=== PATIENT | female | born 1960 | race Caucasian/White ===

== ENCOUNTER → 2016-03-04 | Outpatient (CLI) | payer OTHER ==
[~2016-03-04] MED LIST: ESTR1TAB PO; LOSA50TA PO; MEDR2.5T19 PO; METO50CR PO; SIMV20 PO
[2016-03-04 08:07] LABS: BASOPHIL % 0.7 % (0.0-2.0); EOSINOPHIL # 0.1 TH/MM3 (0-0.4); EOSINOPHIL % 2.3 % (0.0-4.0); HEMATOCRIT 31.4 % (35.0-46.0); HEMO FLAGS DIFF FINAL; LYMPH % 39.4 % (9.0-44.0); LYMPHOCYTE # 1.6 TH/MM3 (1.0-4.8); MEAN CELL VOLUME 95.3 FL (80.0-100.0); MEAN CORPUSCULAR HEMOGLOBIN 31.8 PG (27.0-34.0); MEAN CORPUSCULAR HGB CONC 33.4 % (32.0-36.0); MONO % 7.4 % (0.0-8.0); NEUT % 50.2 % (16.0-70.0); PLATELET COUNT 206 TH/MM3 (150-450); RED CELL DISTRIBUTION WIDTH 14.1 % (11.6-17.2)
[2016-03-04 08:48] LABS: ANION GAP 7 MEQ/L (5-15); AST (GOT) 14 U/L (15-37); BICARBONATE 26.2 MEQ/L (21.0-32.0); BLOOD UREA NITROGEN 35 MG/DL (7-18); CHLORIDE 106 MEQ/L (98-107); GLOMERULAR FILTRATION RATE 28 ML/MIN (>89); GLUCOSE,FASTING 88 MG/DL (74-99); POTASSIUM 4.2 MEQ/L (3.5-5.1); SODIUM (NA) 139 MEQ/L (136-145)
[2016-03-04 08:52] LABS: ALKALINE PHOSPHATASE 66 U/L (45-117); ALT (GPT) 18 U/L (10-53); HDL CHOLESTEROL 116.1 MG/DL (40.0-60.0); LDL CHOLESTEROL 66 MG/DL (0-99); TOTAL BILIRUBIN ADULT 0.4 MG/DL (0.2-1.0)
== END ==
LOC: CLAB 07:40
PROVIDERS: ATTEND Family Medicine
DX: N18.3 Chronic kidney disease, stage 3 (moderate) (principal); I12.9 Hypertensive chronic kidney disease with stage 1 through stage 4 chronic kidney disease, or unspecified chronic kidney disease; D63.8 Anemia in other chronic diseases classified elsewhere; N95.9 Unspecified menopausal and perimenopausal disorder; E55.9 Vitamin D deficiency, unspecified; E78.2 Mixed hyperlipidemia; N08 Glomerular disorders in diseases classified elsewhere
CPT/HCPCS: 36415; 80053; 80061; 82306; 85025

== ENCOUNTER → 2016-05-09 | Outpatient (CLI) | payer OTHER ==
[2016-05-09 08:16] LABS: HEMATOCRIT 29.4 % (35.0-46.0); MEAN CELL VOLUME 95.5 FL (80.0-100.0); MEAN CORPUSCULAR HEMOGLOBIN 32.1 PG (27.0-34.0); MEAN CORPUSCULAR HGB CONC 33.6 % (32.0-36.0); PLATELET COUNT 202 TH/MM3 (150-450); RED BLOOD COUNT 3.07 MIL/MM3 (4.00-5.30); RED CELL DISTRIBUTION WIDTH 14.1 % (11.6-17.2); REVIEW FLAG FINAL; WHITE BLOOD COUNT 4.6 TH/MM3 (4.0-11.0)
[2016-05-09 08:22] LABS: BICARBONATE 26.4 MEQ/L (21.0-32.0); POTASSIUM 4.4 MEQ/L (3.5-5.1)
[2016-05-09 08:22] LABS: BLOOD, URINE MOD (NEG); GLUCOSE,URINE NEG (NEG); KETONE, URINE NEG (NEG); MUCUS URINE FEW /lpf (OCC); NITRITE,URINE NEG (NEG); PH, URINE 5.5 (5.0-8.5); SQUAMOUS EPITHELIAL CELL URINE 2 /hpf (0-5); URINE COLOR YELLOW (YELLW/STRAW)
[2016-05-09 08:23] LABS: COMMENT (UR) CULT NOT INDICATED; CULTURE IF INDICATED CULT NOT INDICATED
== END ==
LOC: CLAB 07:41
PROVIDERS: ATTEND Internal Medicine Nephrology
DX: N25.81 Secondary hyperparathyroidism of renal origin (principal); N18.4 Chronic kidney disease, stage 4 (severe)
CPT/HCPCS: 36415; 80069; 81001; 82570; 83970; 84156; 85027

== ENCOUNTER → 2016-09-27 | Outpatient (CLI) | payer OTHER ==
[2016-09-27 10:35] LABS: BLOOD, URINE MOD (NEG); GLUCOSE,URINE NEG (NEG); KETONE, URINE NEG (NEG); NITRITE,URINE NEG (NEG); SQUAMOUS EPITHELIAL CELL URINE 1 /hpf (0-5); URINE COLOR LIGHT-YELLOW (YELLW/STRAW)
[2016-09-27 10:47] LABS: HEMATOCRIT 29.9 % (35.0-46.0); MEAN CELL VOLUME 97.4 FL (80.0-100.0); MEAN CORPUSCULAR HEMOGLOBIN 32.8 PG (27.0-34.0); MEAN CORPUSCULAR HGB CONC 33.7 % (32.0-36.0); PLATELET COUNT 176 TH/MM3 (150-450); RED BLOOD COUNT 3.08 MIL/MM3 (4.00-5.30); RED CELL DISTRIBUTION WIDTH 14.2 % (11.6-17.2); REVIEW FLAG FINAL; WHITE BLOOD COUNT 4.3 TH/MM3 (4.0-11.0)
[2016-09-27 10:48] LABS: BICARBONATE 24.5 MEQ/L (21.0-32.0); POTASSIUM 3.9 MEQ/L (3.5-5.1)
== END ==
LOC: CLAB 06:53
PROVIDERS: ATTEND Internal Medicine Nephrology
DX: E55.9 Vitamin D deficiency, unspecified (principal); N18.3 Chronic kidney disease, stage 3 (moderate); N25.81 Secondary hyperparathyroidism of renal origin
CPT/HCPCS: 36415; 80069; 81001; 82306; 82570; 83970; 84156; 85027

== ENCOUNTER → 2017-03-10 | Outpatient (CLI) | payer OTHER ==
[2017-03-10 07:49] LABS: AUTOMATED NEUTROPHIL # 1.9 TH/MM3 (1.8-7.7); BASOPHIL % 0.5 % (0.0-2.0); EOSINOPHIL # 0.1 TH/MM3 (0-0.4); EOSINOPHIL % 2.9 % (0.0-4.0); HEMATOCRIT 31.3 % (35.0-46.0); HEMOGLOBIN 10.4 GM/DL (11.6-15.3); LYMPH % 41.8 % (9.0-44.0); LYMPHOCYTE # 1.7 TH/MM3 (1.0-4.8); MEAN CELL VOLUME 95.9 FL (80.0-100.0); MEAN CORPUSCULAR HEMOGLOBIN 31.9 PG (27.0-34.0); MEAN CORPUSCULAR HGB CONC 33.2 % (32.0-36.0); MEAN PLATELET VOLUME 6.8 FL (7.0-11.0); MONOCYTE # 0.3 TH/MM3 (0-0.9); NEUT % 47.8 % (16.0-70.0); PLATELET COUNT 196 TH/MM3 (150-450); RED BLOOD COUNT 3.26 MIL/MM3 (4.00-5.30); RED CELL DISTRIBUTION WIDTH 14.5 % (11.6-17.2)
[2017-03-10 08:10] LABS: ALBUMIN 3.4 GM/DL (3.4-5.0); AST (GOT) 16 U/L (15-37); BICARBONATE 25.6 MEQ/L (21.0-32.0); BLOOD UREA NITROGEN 33 MG/DL (7-18); CALCIUM 9.4 MG/DL (8.5-10.1); CHLORIDE 108 MEQ/L (98-107); CREATININE 1.96 MG/DL (0.50-1.00); GLOMERULAR FILTRATION RATE 26 ML/MIN (>89); GLUCOSE,FASTING 102 MG/DL (74-99); SODIUM (NA) 142 MEQ/L (136-145)
[2017-03-10 08:12] LABS: ALT (GPT) 23 U/L (10-53); CHOLESTEROL 177 MG/DL (120-200); TRIGLYCERIDES 54 MG/DL (42-150)
[2017-03-10 08:13] LABS: ALKALINE PHOSPHATASE 106 U/L (45-117); CHOLESTEROL/ HDL RATIO 1.69 RATIO; HDL CHOLESTEROL 104.3 MG/DL (40.0-60.0); LDL CHOLESTEROL 62 MG/DL (0-99); TOTAL BILIRUBIN ADULT 0.3 MG/DL (0.2-1.0); TOTAL PROTEIN 7.5 GM/DL (6.4-8.2)
== END ==
LOC: CLAB 07:29
PROVIDERS: ATTEND Family Medicine
DX: E78.2 Mixed hyperlipidemia (principal); N08 Glomerular disorders in diseases classified elsewhere; I12.9 Hypertensive chronic kidney disease with stage 1 through stage 4 chronic kidney disease, or unspecified chronic kidney disease; N18.3 Chronic kidney disease, stage 3 (moderate); E55.9 Vitamin D deficiency, unspecified
CPT/HCPCS: 36415; 80053; 80061; 82306; 85025

== ENCOUNTER → 2017-04-07 | Outpatient (CLI) | payer OTHER ==
[2017-04-07 08:28] LABS: HEMOGLOBIN 10.1 GM/DL (11.6-15.3); MEAN CELL VOLUME 95.8 FL (80.0-100.0); MEAN CORPUSCULAR HEMOGLOBIN 32.2 PG (27.0-34.0); MEAN CORPUSCULAR HGB CONC 33.7 % (32.0-36.0); MEAN PLATELET VOLUME 7.1 FL (7.0-11.0); PLATELET COUNT 193 TH/MM3 (150-450); RED BLOOD COUNT 3.13 MIL/MM3 (4.00-5.30); RED CELL DISTRIBUTION WIDTH 14.3 % (11.6-17.2); WHITE BLOOD COUNT 3.8 TH/MM3 (4.0-11.0)
[2017-04-07 08:29] LABS: BACTERIA, URINE RARE /hpf; BILIRUBIN, URINE NEG (NEG); BLOOD, URINE MOD (NEG); GLUCOSE,URINE NEG (NEG); KETONE, URINE NEG (NEG); MUCUS URINE FEW /lpf (OCC); NITRITE,URINE NEG (NEG); SQUAMOUS EPITHELIAL CELL URINE 2 /hpf (0-5); URINE COLOR LIGHT-YELLOW (YELLW/STRAW); URINE LEUKOCYTE ESTERASE NEG (NEG)
[2017-04-07 08:58] LABS: ALBUMIN 3.6 GM/DL (3.4-5.0); BICARBONATE 25.7 MEQ/L (21.0-32.0); CALCIUM 9.3 MG/DL (8.5-10.1); CREATININE 1.83 MG/DL (0.50-1.00); PHOSPHORUS 3.5 MG/DL (2.5-4.9)
== END ==
LOC: CLAB 07:51
PROVIDERS: ATTEND Internal Medicine Nephrology
DX: E55.9 Vitamin D deficiency, unspecified (principal); R80.9 Proteinuria, unspecified; N25.81 Secondary hyperparathyroidism of renal origin; N18.4 Chronic kidney disease, stage 4 (severe)
CPT/HCPCS: 36415; 80069; 81001; 82306; 82570; 82575; 83970; 84156; 85027